=== PATIENT | female | born 1930 | race Caucasian/White ===

== ENCOUNTER 2016-11-13 22:40 | Inpatient (IN) | payer OTHER ==
[2016-11-13 23:16] VITALS: BMI 26.4
--- NOTE | 2016-11-13 23:25 | PDOC ---
History of Present Illness - General History Source: Patient Exam Limitations: No Limitations - History of Present Illness Initial Comments: 11/14/16 00:05 The patient is a 86 year old female who presents with one day of dizziness. The patient reports a feeling of room spinning when she lies down. She reports three episodes in the course of 24 hours and states that each episode lasts about 5 minutes. She states that moving around makes it worse. She also adds that her blood pressure was elevated today (158/72, taken at home). The patient denies any headache or visual changes. She denies any loss of consciousness. She denies any recent illness, fever, chills, nausea, vomiting, diarrhea, cough , shortness of breath, chest pain, or urinary symptoms. PCP: Jack Beyer <Liv Schafer - Last Filed: 11/14/16 00:04> - General History Source: Patient Exam Limitations: No Limitations <Ruthy Hinkle - Last Filed: 11/14/16 02:02> - General Chief Complaint: Blood Pressure Problem Stated Complaint: HIGH BLOOD PRESSURE, DIFF. BREATHING Time Seen by Provider: 11/13/16 23:08 Past History <Liv Schafer - Last Filed: 11/14/16 00:04> - Psycho/Social/Smoking Cessation Hx Suicidal Ideation: No Smoking History: Never smoked Have you smoked in the past 12 months: No Information on smoking cessation initiated: No Hx Alcohol Use: No Drug/Substance Use Hx: No <Ruthy Hinkle - Last Filed: 11/14/16 02:02> - Past Medical History Allergies/Adverse Reactions: Allergies Allergy/AdvReac Type Severity Reaction Status Date / Time No Known Allergies Allergy Verified 11/13/16 23:04 Review of Systems - Review of Systems Able to Perform ROS?: Yes Comments:: 11/14/16 00:05 GENERAL/CONSTITUTIONAL: No fever or chills. No weakness. HEAD, EYES, EARS, NOSE AND THROAT: No change in vision. No ear pain or discharge. No sore throat. CARDIOVASCULAR: No chest pain or shortness of breath. RESPIRATORY: No cough, wheezing, or hemoptysis. GASTROINTESTINAL: No nausea, vomiting, diarrhea or constipation. GENITOURINARY: No dysuria, frequency, or change in urination. MUSCULOSKELETAL: No joint or muscle swelling or pain. No neck or back pain. SKIN: No rash NEUROLOGIC: Present: vertigo No headache, loss of consciousness, or change in strength/sensation. ENDOCRINE: No increased thirst. No abnormal weight change. HEMATOLOGIC/LYMPHATIC: No anemia, easy bleeding, or history of blood clots. ALLERGIC/IMMUNOLOGIC: No hives or skin allergy. All Other Systems: Reviewed and Negative <Liv Schafer - Last Filed: 11/14/16 00:04> *Physical Exam - Vital Signs Last Vital Signs Temp Pulse Resp BP Pulse Ox 98.2 F 90 20 158/78 97 11/13/16 23:04 11/13/16 23:04 11/13/16 23:04 11/13/16 23:04 11/13/16 23:04 - Physical Exam Comments: 11/14/16 00:08 GENERAL: Awake, alert, and fully oriented, in no acute distress HEAD: No signs of trauma EYES: PERRLA, EOMI, sclera anicteric, conjunctiva clear ENT: Auricles normal inspection, hearing grossly normal, nares patent, oropharynx clear without exudates. Moist mucosa NECK: Normal ROM, supple, no lymphadenopathy, JVD, or masses LUNGS: Breath sounds equal, clear to auscultation bilaterally. No wheezes, and no crackles HEART: Regular rate and rhythm, normal S1 and S2, no murmurs, rubs or gallops ABDOMEN: Soft, nontender, normoactive bowel sounds. No guarding, no rebound. No masses EXTREMITIES: Normal range of motion, no edema. No clubbing or cyanosis. No cords, erythema, or tenderness NEUROLOGICAL: Cranial nerves II through XII grossly intact. Normal speech, normal gait SKIN: Warm, Dry, normal turgor, no rashes or lesions noted. <Liv Schafer - Last Filed: 11/14/16 00:04> - Vital Signs Last Vital Signs Temp Pulse Resp BP Pulse Ox 98.2 F 90 20 158/78 97 11/13/16 23:04 11/13/16 23:04 11/13/16 23:04 11/13/16 23:04 11/13/16 23:04 <Ruthy Hinkle - Last Filed: 11/14/16 02:02> Heart Score/ECG Review #1 ECG reviewed & interpreted by me at: 02:01 11/14/16 02:01 Sinus rhythm, rate of 81 bpm Left axis deviation RBBB intervals are abnormal: pr:158ms, QRS:134ms (prolonged), QTc:532ms (prolonged) No ST elevations (+) LVH No old EKG available for comparison <Ruthy Hinkle - Last Filed: 11/14/16 02:02> ED Treatment Course - LABORATORY CBC & Chemistry Diagram: 11/14/16 00:03 11/14/16 00:03 - RADIOLOGY Radiology Studies Ordered: Category Date Time Status CHEST X-RAY PORTABLE* [RAD] Stat Radiology 11/13/16 23:11 Ordered <Ruthy Hinkle - Last Filed: 11/14/16 02:02> Medical Decision Making - Medical Decision Making 11/13/16 23:24 A portion of this note was documented by scribe services under my direction. I have reviewed the details of the note, within reason, and agree with the documentation with the following case summary and management plan written by me. Nursing documentation reviewed and incorporated into medical decision making This is an 86 yo F presenting to the ER with family due to dizziness the patient has had 3-5 episodes of dizziness which she describes as "an earthquake" which she notices predominantly when she is laying down These symptoms are NOT associated with movement of her head No tinnitus No head trauma Pt had a prior episode like this which self resolved No recent upper respiratory episode Pt is currently well appearing No nystagmus No ataxia (pt was able to walk to the bathroom independently) No focal weakness or numbness DD: Vertigo, ICH/CVA, Intracranial Mass, Labrynthitis, TIA? Anemia ACS Given Meclizine 11/14/16 00:32 Laboratory Tests 11/14/16 00:03 WBC 5.9 Hgb 12.7 Hct 38.0 Plt Count 179 Neutrophils % 59.6 Lymphocytes % 30.2 11/14/16 01:29 11/14/16 01:[address] negative 11/14/16 01:50 Laboratory Tests 11/14/16 00:03 Sodium 141 Potassium 3.6 Chloride 103 Carbon Dioxide 25 BUN 22 H Creatinine 1.1 H Random Glucose 102 Creatine Kinase 115 Troponin I 0.18 H B-Natriuretic Peptide 128.[address] Loredo as I am uncomfortable with discharging this patient home as her troponin is not negative I have asked this patient if she has an chest pain, nausea, shortness or breath or chest pressure Pt states no She is most comfortable with her head elevated at [address], she has no more vertigo clinical impression: vertigo, troponin elevation <Ruthy Hinkle - Last Filed: 11/14/16 02:02> *DC/Admit/Observation/Transfer - Attestations Scribe Attestion: 11/14/16 00:08 Documentation prepared by Liv Schafer, acting as certified medical technician assistant for Ruthy Hinkle MD. <Liv Schafer - Last Filed: 11/14/16 00:04> - Discharge Dispostion Admit: Yes <Ruthy Hinkle - Last Filed: 11/14/16 02:02> Diagnosis at time of Disposition: Vertigo, Troponin level elevated - Discharge Dispostion Condition at time of disposition: Stable - Referrals Referrals: Jack Beyer MD [Primary Care Provider] -
[2016-11-13] MEDS ORDERED: MECLIZINE HCL 25 MG TABLET (FP) PO ONE (23:33)
[2016-11-13] MEDS ORDERED: MECLIZINE HCL 25 MG TABLET (FP) ONE (23:52)
[2016-11-14 00:15] LABS: BASOPHIL 0.3 % (0-2.0); EOSINOPHIL 0.5 % (0-4.5); MCH 31.7 pg (25.7-33.7); MCHC 33.5 g/dl (32.0-36.0); MEAN CELL VOLUME 94.6 fl (80-96); MEAN PLT VOLUME 7.7 fl (7.5-11.1); NEUTROPHILS 59.6 % (42.8-82.8); PLATELET COUNT 179 K/MM3 (134-434); WHITE BLOOD COUNT 5.9 K/mm3 (4.0-10.0)
[2016-11-14 00:43] LABS: ALBUMIN 4.4 g/dl (3.4-5.0); BILIRUBIN,TOTAL 0.3 mg/dL (0.2-1.0); CALCIUM 9.6 mg/dL (8.5-10.1); COCKROFT - GAULT 37.4765; CREATININE 1.1 mg/dL (0.55-1.02); TOT PROT 7.7 g/dl (6.4-8.2)
[2016-11-14 00:46] LABS: TROPONIN I 0.18 ng/ml (0.00-0.05)
--- NOTE | 2016-11-14 11:17 | EKG ---
Test Reason : Blood Pressure : / mmHG Vent. Rate : 081 BPM Atrial Rate : 081 BPM P-R Int : 158 ms QRS Dur : 134 ms QT Int : 458 ms P-R-T Axes : 067 -39 014 degrees QTc Int : 532 ms NORMAL SINUS RHYTHM LEFT AXIS DEVIATION RIGHT BUNDLE BRANCH BLOCK MINIMAL VOLTAGE CRITERIA FOR LVH, MAY BE NORMAL VARIANT ABNORMAL ECG WHEN COMPARED WITH ECG OF 29-DEC-2010 20:01, T WAVE INVERSION NO LONGER EVIDENT IN LATERAL LEADS QT HAS LENGTHENED Confirmed by KATELYN LÓPEZ MD ([id number]) on 11/14/2016 11:17:10 AM Referred By: Confirmed By:AKTELYN LÓPEZ MD
[2016-11-14 11:18] LABS: MCH 32.4 pg (25.7-33.7); MCHC 34.7 g/dl (32.0-36.0); MEAN CELL VOLUME 93.3 fl (80-96); PLATELET COUNT 153 K/MM3 (134-434); RDW 12.8 % (11.6-15.6); WHITE BLOOD COUNT 3.9 K/mm3 (4.0-10.0)
[2016-11-14 11:50] LABS: CALCIUM 9.2 mg/dL (8.5-10.1); COCKROFT - GAULT 45.8065; CREATININE 0.9 mg/dL (0.55-1.02)
[2016-11-14 11:52] LABS: TROPONIN I 0.18 ng/ml (0.00-0.05)
--- NOTE | 2016-11-14 20:42 | CON.CARD ---
Consult Consult Specialty:: Cardiology for [facility]acho Reason for Consultation:: elevated tni's - History of Present Illness History of Present Illness: The patient is a 86 year old female who presents with one day of dizziness. The patient reports a feeling of room spinning when she lies down. She reports three episodes in the course of 24 hours and states that each episode lasts about 5 minutes. She states that moving around makes it worse. She also adds that her blood pressure was elevated today (158/72, taken at home). The patient denies any headache or visual changes. She denies any loss of consciousness. She denies any recent illness, fever, chills, nausea, vomiting, diarrhea, cough , shortness of breath, chest pain, or urinary symptoms. - History Source History Provided By: Patient, Medical Record - Past Medical History Cardio/Vascular: Yes: CAD, HTN, Hyperlipdemia - Alcohol/Substance Use Hx Alcohol Use: No - Smoking History Smoking history: Never smoked Have you smoked in the past 12 months: No Home Medications - Allergies Allergies/Adverse Reactions: Allergies Allergy/AdvReac Type Severity Reaction Status Date / Time No Known Allergies Allergy Verified 11/13/16 23:04 - Home Medications Home Medications: Ambulatory Orders Amlodipine Besylate 10 mg PO DAILY 11/14/16 Aspirin [ASA -] 81 mg DAILY 11/14/16 Benicar Hct 40-25 mg Tablet tab PO DAILY 11/14/16 Metolazone [Zaroxolyn -] 2.5 tab PO DAILY 11/14/16 Ranolazine [Ranexa] 1,000 mg PO BID 11/14/16 Rosuvastatin [Crestor -] 10 mg PO DAILY 11/14/16 Review of Systems - Review of Systems Constitutional: reports: No Symptoms Eyes: reports: No Symptoms HENT: reports: No Symptoms Neck: reports: No Symptoms Cardiovascular: reports: No Symptoms Gastrointestinal: reports: No Symptoms Genitourinary: reports: No Symptoms Breasts: reports: No Symptoms Reported Musculoskeletal: reports: No Symptoms Integumentary: reports: No Symptoms Neurological: reports: Other (vertigo) Endocrine: reports: No Symptoms Hematology/Lymphatic: reports: No Symptoms, Excessive Bleeding Psychiatric: reports: No Symptoms Vital Signs: Vital Signs Temperature 99.1 F 11/14/16 17:00 Pulse Rate 76 11/14/16 17:00 Respiratory Rate 20 11/14/16 17:46 Blood Pressure 130/66 11/14/16 17:00 O2 Sat by Pulse Oximetry (%) 97 11/14/16 17:46 Constitutional: Yes: Well Nourished, No Distress, Calm Eyes: Yes: WNL, Conjunctiva Clear, EOM Intact HENT: Yes: WNL, Atraumatic, Normocephalic Neck: Yes: WNL, Supple, Trachea Midline Respiratory: Yes: WNL, Regular, CTA Bilaterally Gastrointestinal: Yes: WNL, Normal Bowel Sounds Renal/: Yes: WNL Cardiovascular: Yes: WNL, Regular Rate and Rhythm Musculoskeletal: Yes: WNL Extremities: Yes: WNL Integumentary: Yes: WNL Neurological: Yes: WNL, Alert, Oriented ...Motor Strength: WNL Psychiatric: Yes: WNL, Alert, Oriented - Other Data Labs, Other Data: CBC, BMP 11/14/16 11:10 11/14/16 11:10 Troponin, BNP 11/14/16 11:10 Troponin I 0.18 H Troponin, BNP 11/14/16 11:10 Troponin I 0.18 H Imaging - Results Chest X-ray: Image Reviewed (no i/e) EKG: Image Reviewed (sr rbbb ldea lvh) Problem List - Problems (1) Troponin level elevated Code(s): R74.8 - ABNORMAL LEVELS OF OTHER SERUM ENZYMES (2) Vertigo Code(s): R42 - DIZZINESS AND GIDDINESS Assessment/Plan vertigo borderline elevated tnis doubt primary mi, ck wnlecho history of prior w/u to be obtained from the office ashd angina htn hld rbbb plan telemetry asa ECHO will need ischemic evaluation if not done recently coverage for dr. Sauer
--- NOTE | 2016-11-15 | HP ---
Admitting History and Physical - Admission Chief Complaint: Vertigo History of Present Illness: Pt is a 86 y/o female w/ PMH significant for HTN, HLD, and CAD. Pt initially presented to the ER w/ complaint of vertigo. This developed about 24 hrs prior to admission and was positional. Pt denied any chest pain/palpitations/nausea/ vomiting/METZ. However in the ER pt found to have elevated troponin of .18. CT scan head was unremarkable w/ no acute pathology. - Past Medical History Cardiovascular: Yes: CAD, HTN, Hyperlipdemia - Smoking History Smoking history: Never smoked Have you smoked in the past 12 months: No - Alcohol/Substance Use Hx Alcohol Use: No Home Medications - Allergies Allergies/Adverse Reactions: Allergies Allergy/AdvReac Type Severity Reaction Status Date / Time No Known Allergies Allergy Verified 11/13/16 23:04 - Home Medications Home Medications: Ambulatory Orders Amlodipine Besylate 10 mg PO DAILY 11/14/16 Aspirin [ASA -] 81 mg DAILY 11/14/16 Benicar Hct 40-25 mg Tablet tab PO DAILY 11/14/16 Metolazone [Zaroxolyn -] 2.5 tab PO DAILY 11/14/16 Ranolazine [Ranexa] 1,000 mg PO BID 11/14/16 Rosuvastatin [Crestor -] 10 mg PO DAILY 11/14/16 Family Disease History - Family Disease History Family History: Unremarkable Review of Systems - Review of Systems Constitutional: reports: No Symptoms Eyes: reports: No Symptoms HENT: reports: No Symptoms Neck: reports: No Symptoms Cardiovascular: reports: No Symptoms Respiratory: reports: No Symptoms Gastrointestinal: reports: No Symptoms Neurological: reports: Other ((+) Vertigo) Physical Examination Vital Signs: Vital Signs Temperature 99.1 F 11/14/16 17:00 Pulse Rate 76 11/14/16 17:00 Respiratory Rate 20 11/14/16 17:46 Blood Pressure 130/66 11/14/16 17:00 O2 Sat by Pulse Oximetry (%) 97 11/14/16 17:46 Constitutional: Yes: Well Nourished Eyes: Yes: WNL HENT: Yes: WNL Neck: Yes: Supple Cardiovascular: Yes: WNL, Regular Rate and Rhythm Respiratory: Yes: WNL, Regular, CTA Bilaterally Gastrointestinal: Yes: WNL, Normal Bowel Sounds, Soft Extremities: Yes: WNL Edema: No Neurological: Yes: WNL, Alert, Oriented ...Motor Strength: WNL Labs: CBC, BMP 11/14/16 11:10 11/14/16 11:10 Problem List - Problems (1) Troponin level elevated Assessment/Plan: Pt admitted to tele Monitor cpk/troponin Cont asa As per cardio Check echo Code(s): R74.8 - ABNORMAL LEVELS OF OTHER SERUM ENZYMES (2) Vertigo Assessment/Plan: Cont antivert ?benign positional vertigo Check mri brain Check carotid doppler Code(s): R42 - DIZZINESS AND GIDDINESS (3) HTN (hypertension) Assessment/Plan: BP stable Cont norvasc/zaroxolyn/asa Code(s): I10 - ESSENTIAL (PRIMARY) HYPERTENSION (4) HLD (hyperlipidemia) Assessment/Plan: Cont crestor Code(s): E78.5 - HYPERLIPIDEMIA, UNSPECIFIED (5) CAD (coronary artery disease) Code(s): I25.10 - ATHSCL HEART DISEASE OF [place] CORONARY ARTERY W/O ANG PCTRS
[2016-11-15] MEDS ORDERED: MECLIZINE HCL 25 MG TABLET (FP) PO PRN (00:04)
[2016-11-15 08:36] LABS: BASOPHIL 0.4 % (0-2.0); MCH 32.4 pg (25.7-33.7); MCHC 34.4 g/dl (32.0-36.0); MEAN CELL VOLUME 94.3 fl (80-96); MEAN PLT VOLUME 7.7 fl (7.5-11.1); NEUTROPHILS 39.2 % (42.8-82.8); PLATELET COUNT 161 K/MM3 (134-434); RDW 12.7 % (11.6-15.6); WHITE BLOOD COUNT 3.9 K/mm3 (4.0-10.0)
[2016-11-15 08:59] LABS: ALBUMIN 3.8 g/dl (3.4-5.0); BILIRUBIN,TOTAL 0.4 mg/dL (0.2-1.0); CALCIUM 9.1 mg/dL (8.5-10.1); COCKROFT - GAULT 41.225
[2016-11-15 09:02] LABS: TROPONIN I 0.19 ng/ml (0.00-0.05)
--- NOTE | 2016-11-15 09:07 | PN ---
Progress Note, Physician History of Present Illness: The patient is a 86 year old female who presents with one day of dizziness. The patient reports a feeling of room spinning when she lies down. She reports three episodes in the course of 24 hours and states that each episode lasts about 5 minutes. She states that moving around makes it worse. She also adds that her blood pressure was elevated today (158/72, taken at home). The patient denies any headache or visual changes. She denies any loss of consciousness. She denies any recent illness, fever, chills, nausea, vomiting, diarrhea, cough , shortness of breath, chest pain, or urinary symptoms. - Current Medication List Current Medications: Active Medications Amlodipine Besylate (Norvasc -) 10 mg PO DAILY [facility] Aspirin (Asa -) 81 mg PO DAILY [facility] Heparin Sodium (Porcine) (Heparin -) 5,000 unit SQ BID [facility] Meclizine HCl (Antivert -) 25 mg PO TID PRN PRN Reason: VERTIGO Metolazone (Zaroxolyn -) 2.5 mg PO DAILY [facility] Ranolazine (Ranexa -) 1,000 mg PO BID [facility] Rosuvastatin Calcium (Crestor -) 10 mg PO DAILY [facility] - Objective Vital Signs: Vital Signs Temperature 98.4 F 11/15/16 06:00 Pulse Rate 68 11/15/16 06:00 Respiratory Rate 17 11/15/16 06:00 Blood Pressure 137/80 11/15/16 06:00 O2 Sat by Pulse Oximetry (%) 95 11/15/16 06:00 Eyes: Yes: WNL, Conjunctiva Clear, EOM Intact HENT: Yes: WNL, Atraumatic, Normocephalic Neck: Yes: WNL, Supple, Trachea Midline Cardiovascular: Yes: WNL, Regular Rate and Rhythm Respiratory: Yes: WNL, Regular, CTA Bilaterally Gastrointestinal: Yes: WNL, Normal Bowel Sounds Genitourinary: Yes: WNL Musculoskeletal: Yes: WNL Extremities: Yes: WNL Edema: No Integumentary: Yes: WNL Neurological: Yes: WNL, Alert, Oriented ...Motor Strength: WNL Psychiatric: Yes: WNL Labs: CBC, BMP 11/15/16 06:00 11/15/16 06:00 Laboratory Tests 11/14/16 11/14/16 11/14/16 00:03 00:03 11:10 WBC 5.9 3.9 L D RBC 4.02 3.73 Hgb 12.7 12.1 Hct 38.0 34.8 MCV 94.6 93.3 MCHC 33.5 34.7 RDW 13.0 12.8 Plt Count 179 153 MPV 7.7 7.0 L Neutrophils % 59.6 Lymphocytes % 30.2 Monocytes % 9.4 Eosinophils % 0.5 Basophils % 0.3 Sodium 141 Potassium 3.6 Chloride 103 Carbon Dioxide 25 Anion Gap 13 BUN 22 H Creatinine 1.1 H Creat Clearance w eGFR 47.21 Random Glucose 102 Calcium 9.6 Total Bilirubin 0.3 AST 18 ALT 21 Alkaline Phosphatase 56 Creatine Kinase 115 Troponin I 0.18 H B-Natriuretic Peptide 128.86 Total Protein 7.7 Albumin 4.4 11/14/16 11/15/16 11/15/16 11:10 06:00 06:00 WBC 3.9 L RBC 3.97 Hgb 12.9 Hct 37.4 MCV 94.3 MCHC 34.4 RDW 12.7 Plt Count 161 MPV 7.7 Neutrophils % 39.2 L D Lymphocytes % 47.0 H D Monocytes % 12.4 H Eosinophils % 1.0 D Basophils % 0.4 Sodium 141 142 Potassium 3.7 3.5 Chloride 105 106 Carbon Dioxide 28 27 Anion Gap 8 9 BUN 15 D 17 Creatinine 0.9 1.0 Creat Clearance w eGFR 52.69 Random Glucose 103 90 Calcium 9.2 9.1 Total Bilirubin 0.4 D AST 14 L D ALT 15 D Alkaline Phosphatase Creatine Kinase 83 Troponin I 0.18 H B-Natriuretic Peptide Total Protein Albumin 3.8 Problem List - Problems (1) Troponin level elevated Code(s): R74.8 - ABNORMAL LEVELS OF OTHER SERUM ENZYMES (2) Vertigo Code(s): R42 - DIZZINESS AND GIDDINESS Assessment/Plan vertigo no cp borderline elevated tnis 0.18, 0.18, 0.19 doubt primary mi, ck wnl history of prior w/u to be obtained from the office ashd angina htn hld rbbb plan telemetry asa ECHO start Toprol xl 25 will need ischemic evaluation if not done recently coverage for dr. Sauer
[2016-11-15] MEDS: ROSUVASTATIN CA 10 MG TABLET (FP) PO SCH (09:18)
[2016-11-15] MEDS: amLODIPine BESYLATE 10 MG TABLET (FP) PO SCH (09:18)
[2016-11-15] MEDS: HEPARIN NA (PORCINE) 5,000 UNITS/ML 1ML VIAL SQ SCH ×2 (09:18→21:35)
[2016-11-15] MEDS: ASPIRIN 81 MG CHEWABLE TABLETS PO SCH (09:18)
[2016-11-15] MEDS: RANOLAZINE E.R. 1,000 MG TABLET (FP) PO SCH ×2 (09:18→21:33)
[2016-11-15] MEDS: METOLAZONE 2.5 MG TABLET (FP) PO SCH (09:20)
[2016-11-16 08:04] LABS: TROPONIN I 0.18 ng/ml (0.00-0.05)
[2016-11-16] MEDS: ASPIRIN 81 MG CHEWABLE TABLETS PO SCH (09:29)
[2016-11-16] MEDS: RANOLAZINE E.R. 1,000 MG TABLET (FP) PO SCH (09:29)
[2016-11-16] MEDS: METOLAZONE 2.5 MG TABLET (FP) PO SCH (09:29)
[2016-11-16] MEDS: ROSUVASTATIN CA 10 MG TABLET (FP) PO SCH (09:29)
[2016-11-16] MEDS: HEPARIN NA (PORCINE) 5,000 UNITS/ML 1ML VIAL SQ SCH (09:30)
[2016-11-16] MEDS: amLODIPine BESYLATE 10 MG TABLET (FP) PO SCH (09:30)
--- NOTE | 2016-11-16 11:47 | PN ---
Progress Note, Physician History of Present Illness: seen and examined today in [facility]. no overnight events. no new complaints. feeling better. no further dizziness. - Current Medication List Current Medications: Active Medications Amlodipine Besylate (Norvasc -) 10 mg PO DAILY [facility] Last Admin: 11/16/16 09:30 Dose: 10 mg Aspirin (Asa -) 81 mg PO DAILY [facility] Last Admin: 11/16/16 09:29 Dose: 81 mg Heparin Sodium (Porcine) (Heparin -) 5,000 unit SQ BID [facility] Last Admin: 11/16/16 09:30 Dose: 5,000 unit Meclizine HCl (Antivert -) 25 mg PO TID PRN PRN Reason: VERTIGO Metolazone (Zaroxolyn -) 2.5 mg PO DAILY [facility] Last Admin: 11/16/16 09:29 Dose: 2.5 mg Ranolazine (Ranexa -) 1,000 mg PO BID [facility] Last Admin: 11/16/16 09:29 Dose: 1,000 mg Rosuvastatin Calcium (Crestor -) 10 mg PO DAILY [facility] Last Admin: 11/16/16 09:29 Dose: 10 mg - Objective Vital Signs: Vital Signs Temperature 98.4 F 11/16/16 06:00 Pulse Rate 89 11/16/16 09:57 Respiratory Rate 18 11/16/16 09:57 Blood Pressure 122/60 11/16/16 09:57 O2 Sat by Pulse Oximetry (%) 98 11/16/16 09:00 Constitutional: Yes: Well Nourished, No Distress, Calm Eyes: Yes: WNL, Conjunctiva Clear, EOM Intact, PERRL HENT: Yes: WNL, Atraumatic, Normocephalic Neck: Yes: WNL, Supple, Trachea Midline Cardiovascular: Yes: Regular Rate and Rhythm, Murmur, S1, S2. No: Bradycardia, Tachycardia, Pulse Irregular, Bruit, JVD, Gallop, Rub, S3, S4, Varicosities Respiratory: Yes: Regular, CTA Bilaterally. No: Rales, Rhonchi, Wheezes Gastrointestinal: Yes: Normal Bowel Sounds, Soft. No: Distention, Tenderness Musculoskeletal: Yes: WNL Extremities: Yes: WNL Edema: No Peripheral Pulses WNL: Yes Peripheral Pulses: Left Doralis Pedis: 2+, Right Dorsalis Pedis: 2+ Integumentary: Yes: WNL Neurological: Yes: Alert, Oriented Psychiatric: Yes: Alert, Oriented Labs: CBC, BMP 11/15/16 06:00 11/15/16 06:00 - ....Imaging Chest X-ray: Report Reviewed, Image Reviewed EKG: Report Reviewed, Image Reviewed Other: Report Reviewed, Image Reviewed (tele-sinus tach, nsr, pvcs, couplets, triplets) Assessment/Plan 86 year old woman with a history of HTN, MR, NICM with chronic systolic CHF, admitted with dizziness, incidentally noted to have a minimally elevated troponin. 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 thus she is at risk of developing higher degree heart block, this has not been seen in hospital but should be evaluated further as outpatient Elevated troponin-incidentally noted -no report of chest pain or sob -does not appear to be ACS -pt had a cardiac cath 2011 that showed normal coronary arteries and has a known history of a NICM -additional work up can be done as outpatient HTN-adequately controlled -cont home medical regimen NICM-chronic systolic CHF -currently euvolemic and asymptomatic -outpatient f/up -cont home medical regimen Prior cardiac work up reviewed from office records as below: ECHO- 09/26/15- limited- borderline lv fxn, mod mr, no hypertrabec lv, stable tv thickening from 2014. 10/01- 1) Borderline normal left ventricular systolic function. 2) There appears to be hypertrabeculation of the LV apex- consider repeating images dedicated to this area if clinically indicated. 3) Normal right ventricular size and function. 4) No pericardial effusion. 5) Insufficient tricuspid regurgitation to measure pulmonary artery pressures. 6) There appears to be focal thickening of the tricuspid valve (clinical correlation advised). There is at least mild tricuspid regurgitation. 7) Mild mitral regurgitation. 8) Mild aortic regurgitation. STRESS- 07/30- 4:00 digna, no cp, no ischemia, lvef 33% CATH- 11/27- normal cors, lvef 35%, nml lvedp, no as
[2016-11-16 18:30] VITALS: BP 120/63; PULSE 76; TEMP 98.6
--- NOTE | 2016-11-16 20:39 | CONSULT ---
Consult - text type - Consultation Consultation Note: NEUROLOGY CONSULTATION is greatly appreciated: Patient was medically stabilized and discharged prior to neurological consultation. Out patient neurological consultation should be considered if positional vertigo recurs. Thank you very much, Rodriguez Cordova MD
== END 2016-11-16 19:16 | disposition home or self-care (01) | DRG 149 ==
LOC: JER 22:40 → JERBED 11-14 02:05 → UNDOADMOB 11-14 02:05 → JERBED 11-14 05:07 → J4W 11-14 05:07 → JERBED 11-15 00:02 → OBSVTOIN 11-15 00:02
PROVIDERS: ADMIT Internal Medicine; ATTEND Internal Medicine
DX: R42 Dizziness and giddiness (principal); I50.22 Chronic systolic (congestive) heart failure; I42.8 Other cardiomyopathies; I25.10 Atherosclerotic heart disease of native coronary artery without angina pectoris; E78.5 Hyperlipidemia, unspecified; R74.8 Abnormal levels of other serum enzymes; I45.19 Other right bundle-branch block; I11.0 Hypertensive heart disease with heart failure
CPT/HCPCS: 36415; 70450-TC; 71010-TC; 80048; 80053; 82550; 83880; 84484; 85025; 85027; 93005; 93010; 93306-TC; 93880-TC; 99282-25; J1644

== ENCOUNTER 2017-09-23 01:05 | Emergency (ER) | payer OTHER ==
[2017-09-23 01:28] VITALS: TEMP 97.8; BMI 29.2
--- NOTE | 2017-09-23 01:32 | PDOC ---
Attending Attestation - Resident Resident Name: Ganga Escamilla - ED Attending Attestation I have performed the following: I have examined & evaluated the patient, The case was reviewed & discussed with the resident, I agree w/resident's findings & plan, Exceptions are as noted - HPI HPI: 09/23/17 02:21 Pt c/o dizziness prior to presentation. - Physicial Exam PE: 09/23/17 02:21 Physical Exam General Appearance: Yes: Appropriately Dressed. No: Apparent Distress, Intoxicated HEENT: positive: EOMI, TIFFANIE, Normal ENT Inspection, Normal Voice, TMs Normal, Pharynx Normal. negative: Pale Conjunctivae, Photophobia, Scleral Icterus (R), Scleral Icterus (L) Neck: positive: Trachea midline, Normal Thyroid, Supple. negative: Tender, Rigid, Carotid bruit, Stridor, Lymphadenopathy (R), Lymphadenopathy (L), Thyromegaly Respiratory/Chest: positive: Lungs Clear, Normal Breath Sounds. negative: Chest Tender, Respiratory Distress, Accessory Muscle Use, Labored Respiration, RES, Crackles, Rales, Rhonchi, Stridor, Wheezing, Dullness Cardiovascular: positive: Regular Rhythm, Regular Rate, S1, S2. negative: Edema , JVD, Murmur, Bradycardia, Tachycardia Vascular Pulses: Dorsalis-Pedis (R): 2+, Doralis-Pedis (L): 2+ Gastrointestinal/Abdominal: positive: Normal Bowel Sounds, Flat, Soft. negative : Tender, Organomegaly, Pulsatile Mass, Increased Bowel Sounds, Decreased BS, Distended, Guarding, Rebound, Hernia, Hepatomegaly, Spleenomegaly Lymphatic: negative: Adenopathy, Tenderness Musculoskeletal: positive: Normal Inspection. negative: CVA Tenderness, Decreased Range of Motion Extremity: positive: Normal Capillary Refill, Normal Inspection, Normal Range of Motion, Pelvis Stable. negative: Tender, Pedal Edema, Swelling, Erythema Integumentary: positive: Normal Color, Dry, Warm. 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 negative: EOM Palsy, Facial Droop, Sensory Deficit - Medical Decision Making 09/23/17 02:41 Pt treated and release. Pt feels better. Stable troponin. Pt to follow up with pcp later today.
[2017-09-23] MEDS ORDERED: METOCLOPRAMIDE HCL INJECTION 10 MG/2 ML VIAL IVPUSH ONE (01:37)
[2017-09-23] MEDS ORDERED: SODIUM CHLORIDE 500 ML IV STA (01:37)
--- NOTE | 2017-09-23 01:47 | PDOC ---
History of Present Illness - General Chief Complaint: Pain, Acute Stated Complaint: ABD PAIN Time Seen by Provider: 09/23/17 01:17 History Source: Patient Exam Limitations: Language Barrier - History of Present Illness Initial Comments: 09/23/17 01:41 Patient is a 87F with history of HTN, HLD, hypothyroidism, h pylori gastritis here today complaining of several hours of dizziness with associated spasmodic movements of arms. Patient states that she was started on medications for h pylori today and has had the rhythmic movements since then. She states she also feels dizzy. She is unsure if it is worse with movement. She endorses associated nausea. She denies fevers, chills, abdominal pain, chest pain, shortness of breath, headache, constipation, diarrhea, dysuria and increased leg swelling. Past History - Past Medical History Allergies/Adverse Reactions: Allergies Allergy/AdvReac Type Severity Reaction Status Date / Time Fish Containing Products Allergy Verified 09/23/17 01:15 fish derived Allergy Verified 09/23/17 01:15 milk Allergy Verified 09/23/17 01:15 Milk Containing Products Allergy Verified 09/23/17 01:15 Home Medications: Ambulatory Orders Amoxicillin - [Amoxicillin 500mg Capsule -] 500 mg PO BID 09/23/17 Aspirin 81 mg PO DAILY 09/23/17 Clarithromycin [Biaxin -] 500 mg PO BID 09/23/17 Levothyroxine Sodium [Levoxyl] 75 mcg PO DAILY 09/23/17 Meloxicam [Mobic (Nf) -] 7.5 mg PO ASDIR PRN 09/23/17 Metolazone [Zaroxolyn -] 2.5 mg PO DAILY 09/23/17 Mv,Calcium,Min/Iron/Folic/Vitk [Essential Woman Tablet] 1 each PO DAILY Olmesartan/Hydrochlorothiazide [Olmesartan-Hctz 40-25 mg Tab] 1 each PO DAILY Omeprazole 40 mg PO BID 09/23/17 Ranolazine [Ranexa -] 1,000 mg PO BID 09/23/17 Cardiac Disorders: Yes COPD: No HTN: Yes Thyroid Disease: Yes (hypo) - Suicide/Smoking/Psychosocial Hx Smoking History: Never smoked Have you smoked in the past 12 months: No Hx Alcohol Use: No Drug/Substance Use Hx: No Substance Use Type: None Hx Substance Use Treatment: No Review of Systems - Review of Systems Comments:: 09/23/17 01:44 GENERAL/CONSTITUTIONAL: No fever or chills. No weakness. HEAD, EYES, EARS, NOSE AND THROAT: No change in vision. Positive for sore throat. CARDIOVASCULAR: No chest pain or shortness of breath RESPIRATORY: No cough, wheezing, or hemoptysis. GASTROINTESTINAL: Positive for nausea. Negative for vomiting, diarrhea or constipation. GENITOURINARY: No dysuria, frequency, or change in urination. MUSCULOSKELETAL: No joint or muscle swelling or pain. No neck or back pain. SKIN: No rash NEUROLOGIC: No headache, vertigo, loss of consciousness, or change in strength/ sensation. ENDOCRINE: No increased thirst. No abnormal weight change ALLERGIC/IMMUNOLOGIC: No hives or skin allergy. *Physical Exam - Vital Signs Last Vital Signs Temp Pulse Resp BP Pulse Ox 97.8 F 92 H 20 139/69 96 09/23/17 01:14 09/23/17 01:14 09/23/17 01:14 09/23/17 01:14 09/23/17 01:14 - Physical Exam Comments: 09/23/17 01:45 GENERAL: Awake, alert, and fully oriented, in no acute distress, spasmodic movements of arms about every minute HEAD: No signs of trauma, normocephalic, atraumatic EYES: PERRLA, EOMI, sclera anicteric, conjunctiva clear ENT: Auricles normal inspection, hearing grossly normal, nares patent, oropharynx clear without exudates. Dry mucosa NECK: Normal ROM, supple, no lymphadenopathy, JVD, or masses LUNGS: No distress, speaks full sentences, clear to auscultation bilaterally HEART: Regular rate and rhythm, normal S1 and S2, no murmurs, rubs or gallops, peripheral pulses normal and equal bilaterally. ABDOMEN: Soft, nontender, normoactive bowel sounds. No guarding, no rebound. No masses EXTREMITIES: Normal inspection, Normal range of motion, no edema. No clubbing or cyanosis. NEUROLOGICAL: Cranial nerves II through XII grossly intact. Normal speech, no focal sensorimotor deficits SKIN: Warm, Dry, normal turgor, no rashes or lesions noted. ED Treatment Course - LABORATORY CBC & Chemistry Diagram: 09/23/17 01:50 09/23/17 01:50 - RADIOLOGY Radiology Studies Ordered: Category Date Time Status CXRPORT [CHEST X-RAY PORTABLE*] [RAD] Stat Radiology 09/23/17 01:40 Ordered Medical Decision Making - Medical Decision Making 09/23/17 01:47 Patient is 87F with history of h pylori gastritis, cad, htn, hld, here today complaining of dizziness with spasmodic movement of arms. Vital signs stable and normal. Medication list reviewed, no apparent cause of spasmodic movement. Patient is fully alert and oriented. Unclear etiology of patient's symptoms at this time. Will treat nausea and apparent dehydration with fluids and reglan ( QTc prolonged on EKG, can also treat hiccups). Differential diagnosis includes, but is not limited to: uti, pneumonia, delirium, occult infection, hiccups. Will evaluate further with cbc, cmp, lactate, ekg, trop, cxr, pt/inr. EKG shows normal sinus rhythm with RBBB and prolonged DQl=[id number]. T wave inversions in V2, V3. No st elevations/depressions. Normal SD intervals. QRS widened to 150ms. When compared to ekg from 11/14/2016, no significant changes. 09/23/17 01:56 CXR shows cardiomegaly, no free air under diaphragm, no pneumonia. 09/23/17 02:42 Laboratory Tests 11/14/16 11/14/16 11/15/16 00:03 11:10 06:00 WBC Hgb Hct Plt Count INR Creatinine Troponin I 0.18 H 0.18 H 0.19 H Urine Nitrite Ur Leukocyte Esterase 11/16/16 09/23/17 09/23/17 05:35 01:50 01:50 WBC 6.8 D Hgb 12.5 Hct 35.9 Plt Count 167 INR 1.06 Creatinine Troponin I 0.18 H Urine Nitrite Ur Leukocyte Esterase 09/23/17 09/23/17 01:50 02:06 WBC Hgb Hct Plt Count INR Creatinine 1.0 Troponin I 0.19 H Urine Nitrite Negative Ur Leukocyte Esterase Negative Trop indeterminate at 0.19, patient has been at 0.18 since October of 2016 when she had a negative workup for cardiac ischemia. Patient reassessed, states that she does not have any chest pain. Denies shortness of breath. States that she no longer feels dizzy and that the spasms have ceased. Believe that patient's troponin is simply at her baseline and not indicative of cardiac etiology. Has PCP follow up with Dr Jack Beyer, will instruct to call for appointment tomorrow. *DC/Admit/Observation/Transfer Diagnosis at time of Disposition: Dizziness - Discharge Dispostion Disposition: HOME Condition at time of disposition: Good Admit: No - Referrals Referrals: Jack Beyer MD [Primary Care Provider] - - Patient Instructions Printed Discharge Instructions: DI for Dizziness-Nonvertigo Additional Instructions: Please return if you have any new, worsening or concerning symptoms. Please follow up with your primary care physician by calling to make an appointment this morning. - Post Discharge Activity
[2017-09-23 01:57] LABS: BASO % 0.2 % (0-2.0); EOS % 0.2 % (0-4.5); HEMATOCRIT 35.9 % (32.4-45.2); HEMOGLOBIN 12.5 GM/dL (10.7-15.3); LYMPH % 18.3 % (8-40); MCH 32.9 pg (25.7-33.7); MCHC 34.9 g/dl (32.0-36.0); MEAN CELL VOLUME 94.3 fl (80-96); MEAN PLT VOLUME 8.2 fl (7.5-11.1); MONO % 6.9 % (3.8-10.2); NEUT % 74.4 % (42.8-82.8); PLATELET COUNT 167 K/MM3 (134-434); RBC 3.81 M/mm3 (3.60-5.2); RDW 12.3 % (11.6-15.6); WHITE BLOOD COUNT 6.8 K/mm3 (4.0-10.0)
[2017-09-23 02:09] LABS: INR 1.06 (0.82-1.09)
[2017-09-23] MEDS ORDERED: METOCLOPRAMIDE HCL INJECTION 10 MG/2 ML VIAL ONE (02:13)
[2017-09-23 02:14] LABS: URINE APPEARANCE CLEAR; URINE BILIRUBIN NEGATIVE (NEGATIVE); URINE BLOOD NEGATIVE (NEGATIVE); URINE COLOR STRAW; URINE GLUCOSE (UA) NEGATIVE (NEGATIVE); URINE KETONE TRACE (NEGATIVE); URINE LEUK ESTERASE NEGATIVE (NEGATIVE); URINE NITRITE NEGATIVE (NEGATIVE); URINE PROTEIN NEGATIVE (NEGATIVE); URINE UROBILINOGEN NEGATIVE mg/dL (0.2-1.0)
[2017-09-23 02:24] LABS: ANION GAP 12 (8-16); BILIRUBIN,TOTAL 0.4 mg/dL (0.2-1.0); BLOOD UREA NITROGEN 23 mg/dL (7-18); CALCIUM 8.8 mg/dL (8.5-10.1); CHLORIDE 105 mmol/L (98-107); CO2 24 mmol/L (21-32); GLUCOSE,RANDOM 115 mg/dL (74-106); LIPASE 146 U/L (73-393); POTASSIUM 3.7 mmol/L (3.5-5.1); SGOT/AST 16 U/L (15-37); SGPT/ALT 16 U/L (12-78); SODIUM 141 mmol/L (136-145); TOT PROT 7.4 g/dl (6.4-8.2)
[2017-09-23 02:27] LABS: ALK PHOS 57 U/L (45-117)
[2017-09-23 03:37] VITALS: BP 132/62; PULSE 85
--- NOTE | 2017-09-23 12:24 | EKG ---
Test Reason : Blood Pressure : / mmHG Vent. Rate : 090 BPM Atrial Rate : 090 BPM P-R Int : 178 ms QRS Dur : 150 ms QT Int : 440 ms P-R-T Axes : 066 -42 036 degrees QTc Int : 538 ms SINUS RHYTHM WITH FUSION COMPLEXES LEFT AXIS DEVIATION RIGHT BUNDLE BRANCH BLOCK SEPTAL INFARCT , AGE UNDETERMINED ABNORMAL ECG WHEN COMPARED WITH ECG OF 14-NOV-2016 01:51, FUSION COMPLEXES ARE NOW PRESENT Confirmed by MARIBEL MCPHERSON, KATELYN ([id number]) on 09/23/2017 12:24:30 PM Referred By: Confirmed By:KATELYN LÓPEZ MD
== END 2017-09-23 03:36 | disposition home or self-care (01) ==
LOC: JER 01:05
PROC: 3E033GC Introduction of Other Therapeutic Substance into Peripheral Vein, Percutaneous Approach (ICD-10-PCS; principal; 2017-09-23)
PROC: 3E0337Z Introduction of Electrolytic and Water Balance Substance into Peripheral Vein, Percutaneous Approach (ICD-10-PCS; 2017-09-23)
DX: R42 Dizziness and giddiness (principal); I10 Essential (primary) hypertension; I25.10 Atherosclerotic heart disease of native coronary artery without angina pectoris; E78.5 Hyperlipidemia, unspecified; E03.9 Hypothyroidism, unspecified; Z91.013 Allergy to seafood; Z91.011 Allergy to milk products; Z79.82 Long term (current) use of aspirin
CPT/HCPCS: 36415; 71045-TC-FY; 80053; 81003; 82550; 83605; 83690; 84484; 85025; 85610; 93005; 93010; 99283-25